=== PATIENT | female | born 1970 | race Caucasian/White ===

== ENCOUNTER 2018-10-26 11:09 | Emergency (ER) | payer OTHER ==
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
--- NOTE | 2018-10-26 13:28 | Diagnostic Imaging Report ---
Thoracic spine (2 views) HISTORY: Pain, trauma, 8 weeks prior Alignment is normal. Disc spaces are maintained. No focal lesions. No fractures. IMPRESSION: No acute abnormalities
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
== END 2018-10-26 14:23 | disposition home or self-care (01) ==
LOC: ER 11:09
DX: M54.2 Cervicalgia (principal); M54.6 Pain in thoracic spine; Z88.1 Allergy status to other antibiotic agents
CPT/HCPCS: 72040-TC; 72072-TC; J1885; Z7502